=== PATIENT | female | born 1960 | race Caucasian/White ===

== ENCOUNTER 2017-05-07 18:41 | Emergency (ER) | payer OTHER ==
[~2017-05-07] VITALS: Ht 154.9 cm; Wt 57.3 kg
[2017-05-07 18:52] VITALS: BP 155/86; PULSE 84; RESP 16; O2SAT 97
--- NOTE | 2017-05-07 19:04 | ED.REPORT ---
HPI-Extremity Problem Lower Date of Service May 07, 2017 ED Provider: Dr. Seb Reagan MD A 56 year old female with no pertinent medical history presents to the ED with left knee pain that began just prior to arrival. The patient was reportedly on an 8ft ladder and fell from approx. 5 ft when the ladder landed on her extended left leg. She has not attempted to bear weight since the incident but has full ROM in the knee. Associated symptoms include nausea and lightheadedness immediately following the incident.The patient denies hearing a "pop" when the injury occurred. She denies any LOC or head injury following the incident. Current medication includes simvastatin. Nursing Notes Stated Complaint: EXTREMITY PAIN Chief Complaint: Extremity Trauma Nursing Notes Reviewed: Yes Allergies: Coded Allergies: No Known Allergies (Unverified , 05/07/17) General Time Seen by MD: 19:03 Chief Complaint Knee injury left Hx Obtained From: Patient Arrived By: Walk-in Onset Occurred: Just prior to arrival Symptom Duration: Since onset Caused by: Accidental, Fall from height... (3-6 feet) Location: : Knee left Quality: Painful Severity: Current: Moderate Severity: Maximum: Moderate Associated with: Reports: Unable to bear weight, Denies: "Pop" felt or heard, Loss of consciousness, Unable to move joint Pertinent Negative: Pt denies other symptoms Recent Healthcare: No recent doctor visit, No recent hospitalization Past Medical History Past Medical History Notes: No PCP - Referred to [facility] Past Medical History Hyperlipidemia Past Surgical History None reported. Smoking History Unknown if Ever Smoker Social History Other Social History: Good social support, Local resident Ambulatory Status Independent Review of Systems Musculoskeletal: Reports: Joint pain (Left knee pain) Neurologic: Reports: Lightheaded, Denies: Change LOC, Headache Complete sys rev & neg: except as marked. GI: Reports: Nausea Physical Exam Initial Vital Signs Vital Signs (First) Date Time Temp Pulse Resp B/P Pulse Ox O2 Delivery O2 Flow Rate FiO2 05/07/17 18:52 36.7 84 16 155/86 97 Room Air Initial VS: Reviewed Head / Eyes: Atraumatic, Normocephalic, PERRL Neck: Supple, Non-tender, Full range of motion Upper Extremities: Vascular intact, Neuro intact, No swelling, No tenderness Skin: Warm, Dry, No cyanosis Neurologic: Alert, Oriented, Nonfocal Psychiatric: Mood/affect normal, Behavior normal, Normal thought content Lower Extremity / Pelvis / MS: Atraumatic, Full range of motion, No swelling, Neurologic intact, Vascular intact (Good DP and PT pulses) Left Knee: Negative: Erythema present, Joint effusion present (No palpable), Swelling present..., Tenderness present... Ankle / Foot: Atraumatic, Non-tender, Neurologic intact, Vascular intact General/Constitutional: Awake, Alert, No acute distress, Well appearing Respiratory / Chest: Atraumatic, No respiratory distress Cardiovascular: Peripheral circulation NL, Pulses = bilaterally Abdomen: Atraumatic, Soft Interpretation & Diagnostics X-Ray Interpretation Xray Interpretation: IMPRESSION: No fracture or dislocation. Dictated by: Stevie Claros M.D. on 05/07/2017 at 20:15 X-Ray Ordered: Knee left Interpretation / Wet Read by: Interpret - Radiologist Re-Eval/Medical Decision Re-Evaluation/Progress : Time of Eval: 19:54 Patient Status: Condition improved Re-Evaluation/Progress Note: Patient condition is re-evaluated. Pt is able to ambulate and bear weight. She is informed of her current results and the intended treatment plan. All questions are addressed. She understands and agrees with the plan. Counseled Regarding: Diagnosis, Need for follow-up, When/why to return to ED Discharge & Departure Impression: Primary Impression: Sprain of left knee Encounter type: initial encounter Involved ligament of knee: unspecified ligament Qualified Code: S83.92XA - Sprain of unspecified site of left knee, initial encounter Disposition: Home Discharge Condition All VS Reviewed: Yes Condition: Improved Patient Instructions: Knee Pain (ED) Additional Instructions: Thank you for entrusting us with your care today. Your emergency department evaluation today included interview, examination, and X-ray. No emergent cause for your pain was identified at this time and your X-ray was reassuring that there is no fracture. Take Tylenol or ibuprofen as directed for pain and swelling. Use ice and heat intermittently for swelling/pain. Schedule a follow-up appointment with your primary care physician in the next week for a recheck. Please return to the emergency department for any new or worsening conditions including any worsening pain, redness, swelling, numbness/tingling in the leg of any other concerning signs or symptoms. Referrals: [facility] Scribe Attestation Portions of this note were transcribed by Jean-Pierre Hendricks. Dr. Isi Sniderck, personally performed the history, physical exam and medical decision-making; I reviewed and confirmed the accuracy of the information in the transcribed note. Signed by: Jean-Pierre Hendricks, 05/07/17. Seb Reagan MD May 07, 2017 19:04 JEAN-PIERRE HENDRICKS May 07, 2017 19:11
--- NOTE | 2017-05-07 20:18 | DRSVH ---
PROCEDURE: X-RAY LEFT KNEE, THREE VIEWS ([id number]) INDICATIONS: left knee painful from fall TECHNIQUE: 3 views of the knee were acquired. COMPARISON: None. FINDINGS: Bones: No fractures or dislocations. No suspicious bony lesions. Soft tissues: No joint effusion. No suspicious soft tissue calcifications. IMPRESSION: No fracture or dislocation. Dictated by: Stevie Claros M.D. on 05/07/2017 at 20:15 Approved by: Stevie Claros M.D. on 05/07/2017 at 20:16
== END 2017-05-07 20:06 | disposition home or self-care (01) ==
LOC: SED 18:41 → EDBD 18:41 → SED 20:06
DX: S83.92XA Sprain of unspecified site of left knee, initial encounter (principal); W11.XXXA Fall on and from ladder, initial encounter; Y93.89 Activity, other specified; Y92.009 Unspecified place in unspecified non-institutional (private) residence as the place of occurrence of the external cause; Y99.8 Other external cause status; R11.0 Nausea; R42 Dizziness and giddiness; E78.5 Hyperlipidemia, unspecified